=== PATIENT | male | born 1985 | race Caucasian/White ===

== ENCOUNTER 2020-12-02 08:01 | Emergency (ER) | payer MEDICAID, OTHER ==
[~2020-12-02] VITALS: Ht 177.8 cm; Wt 11.4 kg
[2020-12-02] MEDS ORDERED: ALBU6.7H9 INH (08:14)
[2020-12-02 08:28] VITALS: BP 152/92
== END 2020-12-02 08:16 | disposition home or self-care (01) ==
LOC: ER 08:01
DX: J45.901 Unspecified asthma with (acute) exacerbation (principal); R06.02 Shortness of breath; Z76.0 Encounter for issue of repeat prescription; Z79.899 Other long term (current) drug therapy
CPT/HCPCS: 99283

== ENCOUNTER 2021-03-30 08:08 | Emergency (ER) | payer MEDICAID, OTHER ==
[~2021-03-30] VITALS: Ht 172.7 cm; Wt 132.7 kg
[~2021-03-30 08:08] MED LIST: ALBU6.7H9 INH
[2021-03-30 08:13] VITALS: BP 158/92
[2021-03-30] MEDS ORDERED: proparacaine 0.5% ophthalmic drops 15ml EACHEYE ONE (10:00)
[2021-03-30] MEDS ORDERED: ERYT1OIN6 EACHEYE (10:02)
--- NOTE | 2021-03-30 10:42 | NUR ---
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 RECOMMENDATIONS: AN ADDITIONAL 15 MINUTE IRRIGATION TO GET THE PH DOWN TO A NORMAL LEVEL, FOLLOWED BY A FLORASINE EXAM, REFERAL TO OPTHOMOLOGIST AND AN RX FOR AN ABX. PROVIDER NOTIFIED
[2021-03-30] MEDS ORDERED: MINE3.5O43 OT (10:44)
== END 2021-03-30 11:06 | disposition home or self-care (01) ==
LOC: ER 08:09
DX: T26.62XA Corrosion of cornea and conjunctival sac, left eye, initial encounter (principal); H57.12 Ocular pain, left eye; F17.200 Nicotine dependence, unspecified, uncomplicated; Z79.2 Long term (current) use of antibiotics; Z79.899 Other long term (current) drug therapy; X58.XXXA Exposure to other specified factors, initial encounter; Y93.89 Activity, other specified; Y92.89 Other specified places as the place of occurrence of the external cause; Y99.8 Other external cause status
CPT/HCPCS: 99283

== ENCOUNTER 2021-10-08 20:52 | Emergency (ER) | payer MEDICAID, OTHER ==
[~2021-10-08] VITALS: Ht 172.7 cm; Wt 118.3 kg
[~2021-10-08 20:52] MED LIST changes: +MINE3.5O43 OT
[2021-10-08 21:06] VITALS: BP 177/98
[2021-10-08] MEDS ORDERED: normal saline 1000ml 1,000 ML IV ONE ×2 (22:10)
[2021-10-08] MEDS ORDERED: diazepam inj 5 MG/ML inj. IV ONE ×2 (22:10→23:00)
[2021-10-08 22:30] LABS: BASOPHILS # (AUTO) 0.1 X10'3 (0-0.2); EOSINOPHILS # (AUTO) 0.2 X10'3 (0-0.9); EOSINOPHILS % (AUTO) 2.4 % (0-6); HEMATOCRIT 45.2 % (42.0-52.0); HEMOGLOBIN 15.1 g/dl (14.0-17.9); LYMPHOCYTES % (AUTO) 31.7 % (21-51); MEAN CORPUSCULAR HEMOGLOBIN 26.4 PG (27.0-31.0); MEAN CORPUSCULAR HGB CONC 33.3 g/dL (33.0-36.5); MEAN CORPUSCULAR VOLUME 79.3 FL (78-98); MEAN PLATELET VOLUME 7.8 FL (7.4-10.4); MONOCYTES # (AUTO) 1.1 X10'3 (0-0.9); MONOCYTES % (AUTO) 11.2 % (2-12); NEUTROPHILS # (AUTO) 5.2 X10'3 (1.8-7.7); NEUTROPHILS % (AUTO) 53.7 % (42-75); PLATELET COUNT 238 X10'3 (140-440); RED CELL DISTRIBUTION WIDTH 14.1 % (11.5-14.5); WHITE BLOOD COUNT 9.6 X10'3 (4.5-11.0)
[2021-10-08 22:30] LABS: CLARITY,URINE SLIGHTLY CLOUDY (Clear); COLOR,URINE YELLOW (Yellow); GLUCOSE, URINE NEGATIVE (Neg); KETONES,URINE NEGATIVE (Neg); LEUKOCYTE ESTERASE ,URINE NEGATIVE (Neg); NITRITES, URINE NEGATIVE (Neg); OCCULT BLOOD,URINE NEGATIVE (Neg); PROTEIN,URINE 30 mg/dl (Neg); UROBILINOGEN,URINE 0.2 E.U/dL (0.2-1.0)
[2021-10-08 22:34] LABS: UA COLLECTION TYPE CLN CATCH MIDSTREAM
[2021-10-08 22:36] LABS: AMORPHOUS PHOSPHATES 2+; BACTERIA,URINE FEW /HPF (Neg); RBC,URINE NONE SEEN /HPF (0-2); SQUAMOUS EPITHELIAL CELL,UR NONE SEEN /LPF (FEW); WBC,URINE NONE SEEN /HPF (0-4)
[2021-10-08 22:52] LABS: ALANINE AMINOTRANSFERASE 101 U/L (12-78); ALBUMIN 3.9 G/DL (3.4-5.0); ALBUMIN/GLOBULIN RATIO 1.1 (1.1-1.5); ALKALINE PHOSPHATASE 71 IU/L (46-116); ANION GAP 6 (8-16); ASPARTATE AMINO TRANSFERASE 59 U/L (10-37); BILIRUBIN,TOTAL 0.8 MG/DL (0.1-1.0); BLOOD UREA NITROGEN 24 MG/DL (7-18); BUN/CREATININE RATIO 18.8 (5.4-32.0); CALCIUM 9.3 MG/DL (8.5-10.1); CHLORIDE 107 MMOL/L (99-107); CREATININE 1.28 MG/DL (0.60-1.10); GLUCOSE 85 MG/DL (70-104); SODIUM 144 MMOL/L (135-145); TOTAL CARBON DIOXIDE 31.1 MMOL/L (24-32); TOTAL PROTEIN 7.4 G/DL (6.4-8.2); eGFR 63 ML/MIN
[2021-10-08 22:55] LABS: POTASSIUM 4.3 MMOL/L (3.5-5.1)
--- NOTE | 2021-10-08 23:55 | NUR ---
IV DC'D PT BEING DISCHARGED DRESSING APPLIED
== END 2021-10-08 23:57 | disposition home or self-care (01) ==
LOC: ER 20:53
DX: E86.0 Dehydration (principal); R25.2 Cramp and spasm
CPT/HCPCS: 36415; 80053; 81001; 85025; 96361; 96374; 96376; 99284; J3360; J7030

== ENCOUNTER 2023-10-11 07:49 | Emergency (ER) | payer MEDICAID ==
[~2023-10-11] VITALS: Ht 172.7 cm; Wt 154.2 kg
[~2023-10-11 07:49] MED LIST changes: +ALBU6.7H14 INH; -ALBU6.7H9 INH
[2023-10-11 07:52] VITALS: TEMP 97.8
[2023-10-11] MEDS ORDERED: ESCI20TA39 PO (08:23)
[2023-10-11] MEDS ORDERED: LISI20TA28 PO (08:23)
[2023-10-11] MEDS ORDERED: METF-900 PO (08:23)
[2023-10-11] MEDS: HYDROcodone/acetaminophen 5mg/325mg tablet PO ONE (09:31)
[2023-10-11 09:58] VITALS: BP 117/59; PULSE 85; O2SAT 93
[2023-10-11 10:51] VITALS: RESP 16
[2023-10-11] MEDS ORDERED: APIX5TAB3 PO (12:03)
[2023-10-11] MEDS ORDERED: HYDR-3965 PO ×2 (12:06→12:32)
[2023-10-11] MEDS: apixaban 5mg tablet PO ONE (12:25)
== END 2023-10-11 17:20 | disposition home or self-care (01) ==
LOC: ER 07:50
DX: I82.4Z1 Acute embolism and thrombosis of unspecified deep veins of right distal lower extremity (principal); Z79.899 Other long term (current) drug therapy
CPT/HCPCS: 93971; 99284; A4615

== ENCOUNTER 2023-10-17 17:43 | Emergency (ER) | payer BC, MEDICAID ==
[~2023-10-17] VITALS: Ht 175.3 cm; Wt 149.8 kg
[~2023-10-17 17:43] MED LIST changes: +APIX5TAB3 PO; +ESCI20TA39 PO; +HYDR-3965 PO; +LISI20TA28 PO; +METF-900 PO; -MINE3.5O43 OT
[2023-10-17 19:18] LABS: BASOPHILS # (AUTO) 0.1 X10'3 (0-0.2); BASOPHILS % (AUTO) 0.7 % (0-1); EOSINOPHILS # (AUTO) 0.1 X10'3 (0-0.9); EOSINOPHILS % (AUTO) 0.7 % (0-6); HEMATOCRIT 47.7 % (42.0-52.0); HEMOGLOBIN 15.3 g/dl (14.0-17.9); LYMPHOCYTES # (AUTO) 2.2 X10'3 (1.1-4.8); LYMPHOCYTES % (AUTO) 15.1 % (21-51); MEAN CORPUSCULAR HEMOGLOBIN 26.2 PG (27.0-31.0); MEAN CORPUSCULAR HGB CONC 32.2 g/dL (33.0-36.5); MEAN CORPUSCULAR VOLUME 81.3 FL (78-98); MEAN PLATELET VOLUME 7.9 FL (7.4-10.4); MONOCYTES # (AUTO) 1.5 X10'3 (0-0.9); MONOCYTES % (AUTO) 10.1 % (2-12); NEUTROPHILS # (AUTO) 10.8 X10'3 (1.8-7.7); NEUTROPHILS % (AUTO) 73.4 % (42-75); PLATELET COUNT 219 X10'3 (140-440); RED BLOOD COUNT 5.86 X10'6 (4.70-6.10); WHITE BLOOD COUNT 14.8 X10'3 (4.5-11.0)
[2023-10-17 19:32] LABS: ALANINE AMINOTRANSFERASE 103 U/L (12-78); ALKALINE PHOSPHATASE 89 IU/L (46-116); ANION GAP 10 (8-16); ASPARTATE AMINO TRANSFERASE 56 U/L (10-37); BILIRUBIN,TOTAL 0.9 MG/DL (0.1-1.0); BLOOD UREA NITROGEN 27 MG/DL (7-18); BUN/CREATININE RATIO 15.4 (10.0-20.0); CHLORIDE 101 MMOL/L (99-107); CREATININE 1.75 MG/DL (0.60-1.10); GLUCOSE 99 MG/DL (70-104); POTASSIUM 4.5 MMOL/L (3.5-5.1); SODIUM 138 MMOL/L (135-145); TOTAL PROTEIN 8.1 G/DL (6.4-8.2); eCRCL 56 ML/MIN; eGFR 43 ML/MIN
[2023-10-17] MEDS: normal saline 1000ML IV soln IVB ONE (19:35)
[2023-10-17 19:40] LABS: PRO BRAIN NATRIURETIC PEPTIDE < 30 PG/ML (0-125)
[2023-10-17 20:06] VITALS: BP 115/69; PULSE 90; RESP 12; TEMP 97.9; O2SAT 96
== END 2023-10-17 21:12 | disposition home or self-care (01) ==
LOC: ER 17:44
DX: R42 Dizziness and giddiness (principal); E86.0 Dehydration; R51.9 Headache, unspecified; R53.1 Weakness; Z79.899 Other long term (current) drug therapy; Z79.84 Long term (current) use of oral hypoglycemic drugs
CPT/HCPCS: 36415; 71045; 80053; 83880; 84484; 85025; 93005; 96360; 99285; J7030

== ENCOUNTER 2023-11-25 12:47 | Emergency (ER) | payer BC, MEDICAID ==
[~2023-11-25] VITALS: Ht 175.3 cm; Wt 150.5 kg
[~2023-11-25 12:47] MED LIST changes: -HYDR-3965 PO
[2023-11-25 12:54] VITALS: TEMP 98
[2023-11-25] MEDS: HYDROcodone/acetaminophen 5mg/325mg tablet PO ONE (14:23)
[2023-11-25] MEDS: ketorolac trometh 30MG/ML vial 30 MG/ML VIAL IM ONE (14:25)
[2023-11-25 14:53] VITALS: BP 141/66; PULSE 85; RESP 20; O2SAT 93
== END 2023-11-25 15:12 | disposition home or self-care (01) ==
LOC: ER 12:48
DX: M25.561 Pain in right knee (principal); M25.461 Effusion, right knee; Z79.899 Other long term (current) drug therapy; Z79.01 Long term (current) use of anticoagulants; W11.XXXA Fall on and from ladder, initial encounter; Z91.81 History of falling; Y93.89 Activity, other specified; Y92.89 Other specified places as the place of occurrence of the external cause; Y99.8 Other external cause status
CPT/HCPCS: 73564; 96372; 99284; J1885

== ENCOUNTER 2024-01-06 13:35 | Emergency (ER) | payer MEDICAID ==
[~2024-01-06] VITALS: Ht 175.3 cm; Wt 145.4 kg
[2024-01-06 13:38] VITALS: BP 123/67
[2024-01-06] MEDS: ipratropium/albuterol 3ml nebule NEB ONE (15:06)
[2024-01-06 15:07] VITALS: PULSE 81; RESP 22; O2SAT 94
[2024-01-06 15:17] VITALS: PULSE 80; RESP 20; O2SAT 95
[2024-01-06] MEDS: methylPREDNISolone sod succ 125mg/2ml vial IM ONE (15:30)
[2024-01-06] MEDS ORDERED: BUDE10.22 INH (15:35)
[2024-01-06] MEDS ORDERED: ALBU10.7 PO (15:35)
[2024-01-06 16:00] VITALS: TEMP 98.5
== END 2024-01-06 16:01 | disposition home or self-care (01) ==
LOC: ER 13:35
DX: J45.901 Unspecified asthma with (acute) exacerbation (principal); Z79.899 Other long term (current) drug therapy; Z79.84 Long term (current) use of oral hypoglycemic drugs
CPT/HCPCS: 94640; 96372; 99283; J2919; 94760

== ENCOUNTER 2024-04-15 09:48 | Emergency (ER) | payer MEDICAID ==
[~2024-04-15] VITALS: Ht 175.3 cm; Wt 138.6 kg
[~2024-04-15 09:48] MED LIST changes: +ALBU10.7 PO; +BUDE10.22 INH
[2024-04-15] MEDS ORDERED: AMOX-117 PO (10:43)
[2024-04-15] MEDS: HYDROcodone/acetaminophen 10/325mg tab PO ONE (10:47)
[2024-04-15] MEDS ORDERED: HYDR-3965 PO (11:06)
[2024-04-15 11:14] VITALS: BP 138/86; PULSE 68; RESP 18; TEMP 97.7; O2SAT 97
== END 2024-04-15 11:16 | disposition home or self-care (01) ==
LOC: ER 09:48
DX: K04.7 Periapical abscess without sinus (principal); Z79.899 Other long term (current) drug therapy; Z79.84 Long term (current) use of oral hypoglycemic drugs
CPT/HCPCS: 99283

== ENCOUNTER 2024-10-15 12:20 | Emergency (ER) | payer MEDICAID ==
[~2024-10-15] VITALS: Ht 175.3 cm; Wt 113.6 kg
[2024-10-15 12:35] VITALS: BP 148/68; PULSE 77; RESP 16; O2SAT 99
--- NOTE | 2024-10-15 13:14 | RADIOLOGY REPORT ---
INDICATION: HAND PAIN AFTER FALLING TECHNIQUE: 4 radiographic views of the right hand and wrist were obtained. COMPARISON: None FINDINGS: There is no evidence of acute fracture or dislocation.The visualized joint space is well ma intained.The alignment is anatomical.The surrounding soft tissues are unremarkable.There is no bony l esions or erosions identified. IMPRESSION: No acute fracture
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
[2024-10-15 13:46] VITALS: TEMP 97.5
== END 2024-10-15 13:48 | disposition home or self-care (01) ==
LOC: ER 12:20
DX: S60.221A Contusion of right hand, initial encounter (principal); S40.011A Contusion of right shoulder, initial encounter; Z79.899 Other long term (current) drug therapy; W05.2XXA Fall from non-moving motorized mobility scooter, initial encounter; Y93.89 Activity, other specified; Y92.89 Other specified places as the place of occurrence of the external cause; Y99.8 Other external cause status
CPT/HCPCS: 73110; 73130; 99284

== ENCOUNTER → 2024-11-11 | Emergency (ER) | payer MEDICAID ==
[~2024-11-11] VITALS: Ht 175.3 cm; Wt 121.9 kg
[2024-11-11 13:37] VITALS: BP 123/80; TEMP 98.4
[2024-11-11] MEDS: ipratropium/albuterol 3ml nebule NEB PRN (14:20)
[2024-11-11 14:22] VITALS: PULSE 68; RESP 20; O2SAT 96
[2024-11-11 14:30] VITALS: PULSE 68; RESP 18; O2SAT 99
--- NOTE | 2024-11-11 14:46 | Physician Documentation ---
History of Present Illness ~ Chief Complaint: Asthma Stated Complaint: ASTHMA COMPLICATIONS Time Seen by MD: 13:48 OK to notify your PCP?: Yes Primary Medical Doctor: [facility] Source: patient Mode of Arrival: POV Exam Limitations: no limitations HPI 39-year-old male presents with asthma exacerbation. He states that this happens every year in the beginning a fall. He has been using has albuterol inhaler for the past week with no improvement. He denies any sore throat, productive cough, runny nose, nausea, vomiting, diarrhea. He denies any chest pain. He is requesting a breathing treatment as well as a steroid inhaler sent to his pharmacy. Medication Reconciliation Allergies: Coded Allergies: No Known Allergies (Unverified , 11/11/24) Scheduled Albuterol Sulfate (Proventil Hfa), 2 PUFFS INH Q6H Apixaban (Eliquis), 1 TAB PO Q12H Budesonide/Formoterol Fumarate (Symbicort 80-4.5 Mcg Inhaler), 2 PUFFS INH Q12H Escitalopram Oxalate (Escitalopram Oxalate), 1 TAB PO DAILY, (Reported) Lisinopril (Lisinopril), 1 TAB PO DAILY, (Reported) Metformin Hcl* (Metformin ER*), 1 TAB PO DAILY, (Reported) Scheduled PRN Albuterol Sulfate/Budesonide (Airsupra 90-80 Mcg Inhaler), 1 INHALER PO BID PRN for SOB or wheezing Past Medical History Past Medical History: No Pertinent History Past Surgical History: noncontributory Drug Use: none Lives In: Home Review of Systems All Other Systems at this time: Reviewed and Negative Physical Exam Vital Signs: RN Vital Signs have been reviewed: Yes, Temperature: 98.4, Source: Temporal, Heart Rate: 68, Respiratory Rate: 18, BP: 123/80, Pulse Oximetry: 99, Weight: 121.900 Oxygen Flow Rate: 0 Pulse Oximetry Reflects: adequate oxygenation Physical Exam General: Alert, no apparent distress. HEENT: PERRL, EOMI, no injection, moist mucous membranes. Neck: Full range of motion. Respiratory: no respiratory distress. Bilateral expiratory wheezes. Chest: No accessory muscle use. Cardiovascular: Regular rate and rhythm, no murmurs. Gastrointestinal: Soft, nontender, nondistended. Bowels sounds present. Extremities: Normal range of motion, no deformity. Neurologic: Oriented x4. Psychiatric: Normal mood and affect. Skin: Normal color, warm and dry. No edema, no ecchymosis. Progress Results/Orders Results/Orders Orders - SANDRA MCNEILL KNIFE FINISHER Ipratropium/Albuterol Nebule (Ipratrop/A (11/11/24 14:15) Methylprednisolone Sod Succ (Solumedrol (11/11/24 14:40) Medications Received in ER Medications (Trade) Dose Ordered Sig/Archie Route PRN Reason Start Time Stop Time Status Last Admin Dose Admin (ipratrop/ albuterol 0.5-3(2.5) MG/3ml nebule) 3 ml ONCE PRN NEB SOB or wheezing 11/11/24 14:15 11/11/24 14:20 3 ML Vital Signs 11/11/24 11/11/24 11/11/24 11/11/24 13:37 14:11 14:22 14:30 Temp 98.4 Pulse 79 68 68 Resp 16 20 18 B/P (MAP) 123/80 Pulse Ox 94 94 96 99 O2 Delivery Nasal Cannula* Nasal Cannula* Nasal Cannula* O2 Flow Rate 0 3 4 3 FiO2 32 36 32 Heart Score: Heart Score Response (Comments) Value History N/A 0 EKG N/A 0 Age <45 0 Risk Factors No known risk factors 0 Troponin N/A 0 Total 0 Medical Decision Making Additional info obtained from: old records Findings This patient states that this is just his asthma acting up which happens every fall. He states that he tried using his albuterol inhaler but it was not helping for the past week. He is requesting a steroid inhalers which he received last year as it was very helpful. Denies any upper respiratory illness symptoms. Physical exam shows bilateral expiratory wheezes but otherwise unremarkable. Gave a DuoNeb treatment as well as a Solu-Medrol IM injection to help improve his breathing pattern. On records review he was prescribed Symbicort to use daily as well as an albuterol/budesonide inhaler to use as needed. I discussed this with the patient and he is requesting both of these inhalers again as they were both very helpful. He is feeling better after the DuoNeb treatment. He is requesting to be discharged home. Differential Dx:Considerations: Include: anxiety, bronchitis, cardiogenic shock, CHF, COPD, hyperventilation, myocardial infarction, panic attack, pneumonia, pneumonitis, pneumothorax, pulmonary embolism, respiratory distress, respiratory failure, upper resp. infection Departure Disposition: 01 HOME / SELF CARE / HOMELESS Impression: Primary Impression: Asthma exacerbation Condition: Improved Discharge Instructions: Asthma, Adult, [id number] Additional Instructions: Please last picker your inhaler from the pharmacy and use them as directed. Follow up with her primary care provider within the next week if there was no improvement please return back here for any new or worsening symptoms. Referrals: NO PRIMARY CARE PROVIDER (PCP) Prescriptions Albuterol Sulfate/Budesonide (Airsupra 90-80 Mcg Inhaler) 90 Mcg-80 Mcg/Actuation Hfa.aer.ad 1 INHALER PO BID PRN for SOB or wheezing for 30 Days, #1 INHALER Prov: SANDRA MCNEILL 11/11/24 Budesonide/Formoterol Fumarate (Symbicort 80-4.5 Mcg Inhaler) 80 Mcg-4.5 Mcg/Actuation Hfa.aer.ad 2 PUFFS INH Q12H for 30 Days, #1 INHALER 0 Refills Prov: SANDRA MCNEILL 11/11/24 Education Educated: Patient Educated regarding: diagnosis, treatment, prognosis, need for follow up Additional Comment Medical Screen Exam This patient recieved a medical screening examination. After reviewing the individual's medical complaints with presenting symptoms and performing an appropriate physical examination, it was determined that no immediate life- threatening emergency medical condition is present. This individual is also not a women having contractions. Signature Scribe Signature: . Attestation: Scribed for Sandra Mcneill by Sandra Mulligan NP . 11/11/24 14:46 Parts of this note were created using [employer] voice recognition software program. While efforts were made to correct any mistakes made by this voice recognition software program, nonsensical phrases may remain in this note. In addition, there may be errors and syntax, grammar, content and spelling. SANDRA MCNEILL Nov 11, 2024 14:46
== END | disposition home or self-care (01) ==
LOC: ER 13:23
DX: J45.901 Unspecified asthma with (acute) exacerbation (principal); Z79.899 Other long term (current) drug therapy
CPT/HCPCS: 94640; 96372; 99283; J2919; 94760; A4620

== ENCOUNTER 2024-11-14 09:42 | Emergency (ER) | payer MEDICAID ==
[~2024-11-14] VITALS: Ht 175.3 cm; Wt 123.0 kg
[2024-11-14 09:47] VITALS: BP 154/100; PULSE 74; RESP 24; TEMP 98.7; O2SAT 100
[2024-11-14 10:05] LABS: MEAN PLATELET VOLUME 8.2 FL (7.4-10.4); RED CELL DISTRIBUTION WIDTH 14.1 % (11.5-14.5)
[2024-11-14 10:27] LABS: CREATININE 0.95 MG/DL (0.60-1.10); TOTAL CARBON DIOXIDE 23.3 MMOL/L (24-32); eCRCL 102 ML/MIN; eGFR 87 ML/MIN
[2024-11-14] MEDS: metoclopramide 5 mg/ml inj IV ONE ×2 (10:49→11:55)
[2024-11-14] MEDS: diazepam inj 5 MG/ML inj. IV ONE ×2 (10:55→11:56)
[2024-11-14] MEDS: haloperidol lactate 5mg/ml inj IM ONE ×2 (10:55→11:56)
[2024-11-14] MEDS: normal saline 1000ML IV soln IVB ONE (10:56)
--- NOTE | 2024-11-14 11:33 | Physician Documentation ---
History of Present Illness Chief Complaint: Vomiting Stated Complaint: N/V Time Seen by MD: 10:34 Primary Medical Doctor: [facility] HPI 39-year-old male who has a habitual marijuana smoker presents with nausea vomiting which started around 5:00 a.m. this morning. He says he had a similar episode 2 days ago. Received Zofran EN route but did not seem to help him reports That hot shower helps alleviate symptoms Denies any fevers ,denies diarrhea Day of Onset: Nov 14, 2024 Medication Reconciliation Allergies: Coded Allergies: No Known Allergies (Unverified , 11/11/24) Scheduled Albuterol Sulfate (Proventil Hfa), 2 PUFFS INH Q6H Apixaban (Eliquis), 1 TAB PO Q12H Budesonide/Formoterol Fumarate (Symbicort 80-4.5 Mcg Inhaler), 2 PUFFS INH Q12H Capsaicin 60GM Cream* (Zostrix Cream*), 1 APPLIC TOP Q12H Escitalopram Oxalate (Escitalopram Oxalate), 1 TAB PO DAILY, (Reported) Lisinopril (Lisinopril), 1 TAB PO DAILY, (Reported) Metformin Hcl* (Metformin ER*), 1 TAB PO DAILY, (Reported) Scheduled PRN Albuterol Sulfate/Budesonide (Airsupra 90-80 Mcg Inhaler), 1 INHALER PO BID PRN for SOB or wheezing Past Medical History Past Medical History: No Pertinent History Past Surgical History: noncontributory Drug Use: none Lives In: Home Review of Systems All Other Systems at this time: Reviewed and Negative ROS As stated above in the HPI, otherwise all systems are reviewed and negative. Physical Exam Vital Signs: Temperature: 98.7, Source: Oral, Heart Rate: 74, Respiratory Rate: 24, BP: 154/100, Pulse Oximetry: 100, Weight: 123.000 Oxygen Flow Rate: 0 Physical Exam General: Alert, no apparent distress. Respiratory: Lungs clear, no respiratory distress. Cardiovascular: Regular rate and rhythm, no murmurs. Gastrointestinal: Soft, nontender, nondistended. Bowels sounds present. Neurologic: Oriented x4. Psychiatric: Normal mood and affect. Skin: pale, warm and dry. No edema, no ecchymosis. Progress Results/Orders Results/Orders Orders - BLANE COURTNEY NP Haloperidol Lact. (Haldol) (11/14/24 11:35) Diazepam Inj (Valium Inj) (11/14/24 11:35) Metoclopramide Inj (Reglan Inj) (11/14/24 11:35) Completed Orders - BLANE COURTNEY RN RADIOLOGY Normal Saline 1000ml (0.9% Sodium Chlori (11/14/24 10:35) Haloperidol Lact. (Haldol) (11/14/24 10:35) Metoclopramide Inj (Reglan Inj) (11/14/24 10:35) Diazepam Inj (Valium Inj) (11/14/24 10:35) Medications Received in ER Medications (Trade) Dose Ordered Sig/Archie Route PRN Reason Start Time Stop Time Status Last Admin Dose Admin (0.9% sodium chloride (NS) 1000ml IV soln) 1,000 ml ONCE ONCE IVB 11/14/24 10:35 11/14/24 10:36 DC 11/14/24 10:56 1,000 ML (Haldol) 5 mg ONCE ONCE IM 11/14/24 10:35 11/14/24 10:36 DC 11/14/24 10:55 5 MG (Reglan inj) 5 mg ONCE ONCE IV 11/14/24 10:35 11/14/24 10:38 DC 11/14/24 10:49 5 MG (Valium inj) 5 mg ONCE ONCE IV 11/14/24 10:35 11/14/24 10:36 DC 11/14/24 10:55 5 MG Vital Signs 11/14/24 09:47 Temp 98.7 Pulse 74 Resp 24 B/P (MAP) 154/100 Pulse Ox 100 O2 Flow Rate 0 Laboratory Tests Test 11/14/24 09:57 White Blood Count 9.3 Red Blood Count 5.66 Hemoglobin 14.6 Hematocrit 44.8 Mean Corpuscular Volume 79.2 Mean Corpuscular Hemoglobin 25.9 L Mean Corpuscular Hemoglobin Concent 32.7 L Red Cell Distribution Width 14.1 Platelet Count 251 Mean Platelet Volume 8.2 Neutrophils (%) (Auto) 77.7 H Lymphocytes (%) (Auto) 17.2 L Monocytes (%) (Auto) 4.7 Eosinophils (%) (Auto) 0.2 Basophils (%) (Auto) 0.2 Neutrophils # (Auto) 7.2 Lymphocytes # (Auto) 1.6 Monocytes # (Auto) 0.4 Eosinophils # (Auto) 0.0 Basophils # (Auto) 0.0 CBC Comment Sodium Level 137 Potassium Level 3.9 Chloride Level 104 Carbon Dioxide Level 23.3 L Anion Gap 10 Blood Urea Nitrogen 11 Creatinine 0.95 Estimated GFR/1.73 m2 87 BUN/Creatinine Ratio 11.6 Glucose Level 103 Calcium Level 9.1 Total Bilirubin 0.7 Aspartate Amino Transf (AST/SGOT) 18 Alanine Aminotransferase (ALT/SGPT) 29 Alkaline Phosphatase 67 Total Protein 7.3 Albumin 3.7 Globulin 3.6 Albumin/Globulin Ratio 1.0 L Lipase 43 Chemistry Comments Medical Decision Making Findings Patient presents with all the clinical indicators of marijuana induced cyclic vomiting. Treated with antiemetics Haldol fluids and Benadryl which improved his symptoms overall. He would give him capsaicin cream which also assisted with his vomiting in nausea Advised patient he needs to cease use of marijuana in order to completely alleviate symptoms Differential Dx:Considerations: Include: AAA, Angina/VA, Aortic dissection, Appendicitis, Bowel obstruction, Cholangitis, Cholelithasis, Constipation, Diverticular disease, Esophageal rupture, Esophagitis, Gastritis/PUD, Gastroenteritis, GI hemorrhage, Hernia, Hepatitis, Inflammatory BD, Ischemic bowel, Pancreatitis, Porphyria, Testicular torsion, Trauma, intraabdominal, Urinary obstruction, Urinary tract infection, Urolithiasis, Other Departure Disposition: 01 HOME / SELF CARE / HOMELESS Impression: Primary Impression: Cyclical vomiting Condition: Improved Discharge Instructions: Preventing Marijuana Misuse Referrals: NO PRIMARY CARE PROVIDER (PCP) Prescriptions Capsaicin 60GM Cream* (Zostrix Cream*) 60 Gm Cream.gm. 1 APPLIC TOP Q12H for cyclic vomiting for 30 Days, #60 GM Prov: BLANE COURTNEY NP 11/14/24 Education Educated: Patient Educated regarding: diagnosis Signature Scribe Signature: g Attestation: Scribed for Blane Courtney Contract Design Agent by Blane Mulligan NP . 11/14/24 17:39 BLANE COURTNEY NP Nov 14, 2024 11:33
[2024-11-14] MEDS ORDERED: CAPS60CR6 TOP (11:46)
== END 2024-11-14 12:43 | disposition home or self-care (01) ==
LOC: ER 09:42
DX: R11.2 Nausea with vomiting, unspecified (principal)
CPT/HCPCS: 36415; 80053; 83690; 85025; 96361; 96372; 96374; 96375; 96376; 99284; J1630; J2765; J3360; J7030

== ENCOUNTER 2024-12-16 15:29 | Emergency (ER) | payer MEDICAID ==
[~2024-12-16] VITALS: Ht 175.3 cm; Wt 118.6 kg
[2024-12-16 15:33] VITALS: BP 128/63; PULSE 88; RESP 18; O2SAT 98
--- NOTE | 2024-12-16 16:27 | RADIOLOGY REPORT ---
EXAM: CT CT HEAD INDICATION: Left scalp contusion on blood thinners TECHNIQUE: CT of the head without intravenous contrast. Radiation Dose : 1. Head: CT Dose: CTDI volume is 67 mGy. Dose-length product is 1138 mGy*cm The dose indicators for CT are the volume Computed Tomography (CT) Dose Index (CTDIvol) and the Dose Length Product (DLP), and are measured in units of mGy and mGy-cm, respectively. These indicators are not patient dose, but values generated from the CT scanner acquisition factors. The report includes radiation exposure data for exposures received during this examination. COMPARISON: None FINDINGS: There is no evidence of acute intracranial hemorrhage, extra-axial collection, mass effect, midline shift, herniation or hydrocephalus. The ventricles, sulci and cisterns are age appropriate. The noble-white differentiation is intact. Patchy periventricular and subcortical white matter hypoattenuation is nonspecific but may be related to small vessel ischemic disease. The visualized paranasal sinuses and mastoid air cells are clear. The surrounding soft tissues and osseous structures are unremarkable. IMPRESSION: 1. No acute intracranial abnormality. Radiation optimization: All CT scans at this facility use at least one of these dose optimization techniques: automated exposure control mA and/or kV adjustment per patient size (includes targeted exams where dose is matched to clinical indication) or iterative reconstruction.
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
[2024-12-16 17:24] VITALS: TEMP 97.8
== END 2024-12-16 17:26 | disposition home or self-care (01) ==
LOC: ER 15:29
DX: S00.83XA Contusion of other part of head, initial encounter (principal); Z79.01 Long term (current) use of anticoagulants; W22.8XXA Striking against or struck by other objects, initial encounter; Y93.89 Activity, other specified; Y92.89 Other specified places as the place of occurrence of the external cause; Y99.8 Other external cause status
CPT/HCPCS: 70450; 99284